=== PATIENT | male | born 1995 | race Two or more races ===

== ENCOUNTER 2022-08-03 12:19 | Emergency (ER) | payer OTHER ==
[~2022-08-03] VITALS: Ht 175.3 cm; Wt 83.5 kg
--- NOTE | 2022-08-03 12:34 | NUR ---
PT BROUGHT IN BY SELF FOR GENTAL PAIN. ON ASSESSMENT PENIS IS ERRECT AND HAS BEEN ERRECT SINCE 6PM PT TOOK VIAGRA FOR INTERCOURSE AT 11PM PT TOOK A TRAZADONE TO SLEEP WOKE UP 4AM AND NOTICED HIS PENIS THROBING AND PAIN. PT TAKES SUBOXONE FOR FENTANYL. WITHDRAWL. NKA VITALS WNL. IN BED BED LOCKED IN LOWEST POSTION.
[2022-08-03] MEDS ORDERED: MORPHINE SULFATE INJ 2 MG/ML DISP.SYRIN IV ONE (13:00)
[2022-08-03] MEDS ORDERED: MORPHINE SULFATE INJ 4 MG/ML DISP.SYRIN ONE (13:19)
[2022-08-03] MEDS ORDERED: PHENYLEPHRINE 10 MG/ML VIAL ONE (13:28)
[2022-08-03] MEDS ORDERED: LIDOCAINE 0.5% HCL 50 ML VIAL IJ ONE (13:30)
[2022-08-03] MEDS ORDERED: PHENYLEPHRINE 10 MG/ML VIAL IV ONE (13:30)
--- NOTE | 2022-08-03 15:51 | NUR ---
Patient discharged to home in stable condition. Written and verbal after care instructions given. Patient verbalizes understanding of instruction.
--- NOTE | 2022-08-03 15:51 | NUR ---
IV removed. Catheter intact and site benign. Pressure and 4x4 applied to site. No bleeding noted.
--- NOTE | 2022-08-03 15:52 | NUR ---
PT IS REQUESTING ALL THE MEDICATION GIVEN TO HIM FOR PERSONAL USE.(HE IS BEING TESTED FOR DRUGS ON A SCHEDULE.
[2022-08-03 15:57] VITALS: BP 120/76
== END 2022-08-03 15:57 | disposition home or self-care (01) ==
LOC: ER 12:22
DX: N48.33 Priapism, drug-induced (principal)
CPT/HCPCS: 99291; 96374; J2270; J2370; A6403